=== PATIENT | female | born 1985 | race Caucasian/White ===

== ENCOUNTER 2017-07-02 21:14 | Emergency (ER) | payer BC, SELFPAY ==
[2017-07-02 21:24] VITALS: BP 156/100; PULSE 87; RESP 18; TEMP 36.8; O2SAT 100; BMI 30.5
--- NOTE | 2017-07-02 21:39 | DI.CT.S_ITS ---
PROCEDURE: CT ABDOMEN PELVIS W CON INDICATIONS: Right lower quadrant pain TECHNIQUE: After the administration of intravenous contrast, 5 mm thick sections acquired from the diaphragm to the symphysis. 5 mm coronal and sagittal reformats were acquired. For radiation dose reduction, the following was used: automated exposure control, adjustment of mA and/or kV according to patient size. COMPARISON: [facility], CT, ABDOMEN/PELVIS WITH CONTRAST, 01/25/2016, 22:09. [facility], CT, ABDOMEN/PELVIS WITH CONTRAST, 08/29/2016, 23:11. FINDINGS: Image quality: Excellent. ABDOMEN: Lung bases: Lung bases are clear. Heart size is normal. Solid organs: Mild hepatic steatosis otherwise liver is normal in size and enhancement. Gallbladder partially collapsed otherwise unremarkable.. Biliary system is non dilated. Pancreas enhances normally. Spleen is normal in size and enhancement. No adrenal nodules. Kidneys demonstrate normal size and enhancement, without hydronephrosis. Peritoneum and bowel: Bowel loops demonstrate normal wall thickness and caliber. No free fluid or air. Appendix not definitely visualized and reportedly surgically absent. The rectum is partially collapsed otherwise unremarkable. No evidence of acute diverticulitis. Nodes and vessels: No retroperitoneal or mesenteric adenopathy by size criteria. Aorta and inferior vena cava are normal in size. Miscellaneous: No ventral hernias. PELVIS: Genitourinary: Bladder wall thickness is normal. Postsurgical changes suggesting partial hysterectomy noted with no interval change since 01/25/16, and nearby mild pelvic free fluid. There is an irregular 2.2 cm right adnexal cystic lesion, which appears decreased in size since 08/29/16. Miscellaneous: No inguinal hernias or adenopathy. Bones: No suspicious bony lesions. No vertebral body compression fractures. IMPRESSION: Right adnexal cystic lesion, presumably involuting ovarian follicle or partially collapsed cyst given that this appears decreased in size since 08/29/16 and patient age. Recommend clinical correlation and if necessary continued surveillance with pelvic ultrasound could be performed to document complete resolution. Status post appendectomy. Elsewhere, no acute abnormality. Dictated by: Perry Kim M.D. on 07/03/2017 at 7:40 Approved by: Perry Kim M.D. on 07/03/2017 at 7:48
[2017-07-02] MEDS: SODIUM CHLORIDE 0.9% 1,000 ML 1000 ML IV (21:40)
[2017-07-02] MEDS: KETOROLAC 60 MG/2 ML VIAL 15 MG IV (21:40)
[2017-07-02 21:55] LABS: Add Manual Diff / Slide Review NO; Basophils Percent Auto 0.7 % (0-2); Eosinophils Percent Auto 1.9 % (2-4); Hematocrit 41.7 % (36-46); Hemoglobin 14.6 g/dL (12.0-16.0); Lymphocytes Percent Auto 22.5 % (25-40); Mean Corpuscular HGB Conc 34.9 % (30-36); Mean Corpuscular Hemoglobin 30.1 PG (26-34); Monocytes Percent Auto 7.9 % (3-14); Neutrophils Absolute Auto 10900 /uL (3000-5900); Platelet Count 281 X10^3/uL (150-400); Red Blood Cell Count 4.84 X10^6/uL (4.0-5.2); Red Cell Distribution Width 13.4 % (11.6-14.8); White Blood Cell Count 16.3 X10^3/uL (4.5-11.0)
[2017-07-02 22:08] LABS: Appearance Urine UA CLEAR; Bilirubin Urine UA NEGATIVE (NEGATIVE); Color Urine UA YELLOW; Glucose Urine UA NEGATIVE (Normal); Ketones Urine UA NEGATIVE (NEGATIVE); Leukocyte Esterase Urine UA NEGATIVE (NEGATIVE); Nitrite Urine UA NEGATIVE (NEGATIVE); Occult Blood Urine UA NEGATIVE (Negative); Protein Urine UA NEGATIVE (Negative); Urine Amphetamines Negative (Negative); Urine Barbiturates Negative (Negative); Urine Benzodiazepines Negative (Negative); Urine Cocaine Negative (Negative); Urine MDMA Negative (Negative); Urine Methadone Negative (Negative); Urine Methamphetamines Negative (Negative); Urine Morphine/Opi cutoff 2000 Negative (Negative); Urine Oxycodone Negative (Negative); Urine Phencyclidine Negative (Negative); Urine Tetrahydrocannabinol Negative (Negative); Urine Tricyclic Antidepressant Negative (Negative); Urobilinogen Urine UA 0.2 E.U./dL (0.2)
[2017-07-02 22:10] LABS: Bacteria Urine Many (>30); Culture Indicated Urine Specimen Cultured; Squamous Epithelial Cell Urine 0-1 /HPF; WBC Urine 0-1/HPF (0-5/HPF)
[2017-07-02 22:12] LABS: Alanine Aminotransferase 59 IU/L (9-52); Albumin 4.4 g/dL (3.5-5.0); Albumin Globulin Ratio 1.4 (1.0-2.8); Alkaline Phosphatase 78 U/L (38-126); Aspartate Aminotransferase 35 IU/L (14-36); BUN Creatinine Ratio 17.5 (6-22); Bilirubin Total 0.4 mg/dL (0.2-1.3); Calcium 9.8 mg/dL (8.4-10.2); Estimated Glomerular Filt Rate > 60.0 mL/min (>60); Globulin 3.1 g/dL (1.7-4.1); Glucose 93 mg/dL (70-100); HEMOLYSIS 37 (0-50); Lipase 82 U/L (23-300); Potassium 3.6 mmol/L (3.4-5.1); Sodium 142 mmol/L (137-145); Total Protein 7.5 g/dL (6.3-8.2)
[2017-07-02 23:11] VITALS: BP 142/90; PULSE 99; RESP 18; O2SAT 100
--- NOTE | 2017-07-03 00:16 | DI.US.S_ITS ---
PROCEDURE: US TRANSVAGINAL COMPARISON: None. INDICATIONS: rlq pain - torsion? FINDINGS: Uterus is surgically absent. Right adnexa measures 4.2 x 2.0 x 3.2 cm. Thickwalled, complex solid/cystic lesion in the right adnexa that measures 2.4 x 1.5 x 2.0 cm. Color Doppler evaluation demonstrates normal vascular flow in the right adnexa. Left adnexa is surgically absent. Small amount of fluid noted in the cul-de-sac of the pelvis which is within physiologic limits. Limited evaluation of the kidneys is within normal limits. IMPRESSION: 1. Status post hysterectomy and left oophorectomy. 2. No evidence of right ovarian torsion. Please note intermittent torsion cannot be excluded by ultrasound. 3. Thick walled solid/cystic lesion involving the right ovary which may represent a collapsing dominant follicle. Recommend followup imaging in 4-6 weeks to evaluate for complete resolution. Dictated by: Ciara Strauss MD, PhD on 07/03/2017 at 8:55 Approved by: Ciara Strauss MD, PhD on 07/03/2017 at 8:58
[2017-07-03] MEDS: KETOROLAC 60 MG/2 ML VIAL 15 MG IV (00:31)
[2017-07-03 01:25] LABS: Pregnancy Test Serum,Qual Negative (Negative)
[2017-07-03 01:26] VITALS: BP 122/78; PULSE 73; RESP 20; O2SAT 99
[2017-07-03] MEDS: CIPROFLOXACIN 500 MG TABLET PO (01:37)
--- NOTE | 2017-07-03 03:40 | ED.ABDPAIN ---
HPI - Abdominal Pain General Chief Complaint: Abdominal Pain Stated Complaint: ABDOMINAL PAIN History of Present Illness HPI narrative: HPI 31-year-old female with a history notable for ??3, hysterectomy, left oopherectomy, appendectomy s/p perforate appendicitis, lysis of adhesions ??3, and a right ovarian cyst presents complaining of one week of ongoing waxing and waning nonradiating moderate right lower quadrant pain that is been refractory to hot tub soaks. Denies dysuria, urinary frequency, vaginal discharge or discomfort, fevers, chills, change in PO intake, contains to pass flatus and stool at baseline, denies further symptoms. M/S/F/SocHx notable for: please see HPI; remainder reviewed with patient and in chart. ROS: Negative constitutional, eye, cardiovascular, pulmonary, GI, , MSK, skin, neurologic, psychiatric, endocrine unless noted in the HPI. Exam Gen: Pleasant, non-toxic appearing, resting in mild discomfort. HEENT: NC, AT, PEERL, EOMI. Resp: Clear to auscultation bilaterally, normal work of breathing, no accessory muscle usage. Card: Regular rate and rhythm with no murmurs, rubs, or gallops, extremities warm and well perfused. GI: Non-tender to palpation throughout all quadrants with the exception of mild right lower quadrant tenderness to palpation, no focal tenderness at McBurney's point, negative Comer's sign, non-distended, no rebound or guarding. : No right sided CVA tenderness to percussion, no left sided CVA tenderness to percussion. No suprapubic tenderness to palpation. MSK: No visible deformities, strength and tone WNL. Skin: Normal color with no visible lesions. Neuro: AO x 3, no facial asymmetry, vision and hearing WNL. Psych: Mood and affect appropriate. Labs / Imaging (pertinent): WBC 16.3, 1114.6, sodium 142, potassium 3.6, AST 35, ALT 59, total bilirubin 0.4, lipase 82, serum negative. UDS negative UA - negative nitrate, negative leukocyte esterase, 0-1 squamous epithelial cells, many bacteria. CT abdomen/pelvis partial hysterectomy. Slight intrapelvic fluid. Mildly thickened irregular 2.2 cm right ovarian dominant follicle or partially collapsed cyst. Transvaginal ultrasound: thick-walled collapsed appearing cystic structure in the right ovary measuring to send near maximal outer diameter, probably collapsed ovarian dominant follicle or cyst. Document a blood flow in the right ovary. Mild cul-de-sac fluid. MDM Previous chart, nursing note, and vitals reviewed. A: 31-year-old female with a history notable for ??3, hysterectomy, left oopherectomy, appendectomy s/p perforate appendicitis, lysis of adhesions ??3, and a right ovarian cyst presents complaining of one week of ongoing waxing and waning nonradiating moderate right lower quadrant pain that is been refractory to hot tub soaks. DDx: renal colic, UTI, pyelonephritis, AAA, biliary disease (colic/cholelithiasis/cholecystitis), large bowel disease (diverticulitis/appendicitis),ovarian torsion, hemorrhagic cyst, ectopic . Evaluation: UA consistent with UTI. Patient prescribed ciprofloxacin. Imaging without evidence of biliary disease, a history and exam a poor correlate for biliary colic. No evidence of large bowel disease, ovarian torsion or hemorrhagic cyst by imaging. Patient status post hysterectomy, negative . ED Course: pain controlled with Toradol. Disposition: discharged with RX for ciprofloxacin, instructed to use NSAIDs for pain control and follow up with PC. Impression: UTI. (please reference below for remainder of encounter information) Related Data Home Medications Medication Instructions Recorded Confirmed aripiprazole [Abilify] 10 mg PO DAILY 07/02/17 07/02/17 cetirizine [Zyrtec] 10 mg PO DAILY 07/02/17 07/02/17 cholecalciferol (vitamin D3) 1,000 unit PO DAILY 07/02/17 07/02/17 [Vitamin D3] Previous Rx's Medication Instructions Recorded ciprofloxacin HCl 250 mg PO BID 3 Days #6 tab 07/03/17 Allergies Allergy/AdvReac Type Severity Reaction Status Date / Time metoclopramide Allergy Intermediate MUSCLE Verified 07/02/17 21:27 [METOCLOPRAMIDE] SPASMS venlafaxine [VENLAFAXINE] Allergy Unknown ANXIETY Verified 07/02/17 21:27 PFSH Surgical History Hx of appendectomy (Acute) History of third molar tooth extraction Status post delivery (12/05/02) Status post delivery (06/10/04) Status post delivery (07/23/11) Status post delivery (06/20/14) Status post hysterectomy (06/20/14) Status post laparoscopy (08/13/15) Status post tonsillectomy and adenoidectomy Social History Smoking Status: Former smoker Exam Initial Vital Signs Initial Vital Signs: Vital Signs Temperature 98.3 F 07/02/17 21:24 Pulse Rate 87 07/02/17 21:24 Respiratory Rate 18 07/02/17 21:24 Blood Pressure 156/100 H 07/02/17 21:24 Pulse Oximetry 100 07/02/17 21:24 Course Orders Ordered: ED Orders 07/02/17 21:19 Rapid Drug Screen, Urine Stat Urinalysis and Microscopic Stat 07/02/17 21:39 CT abdomen pelvis w con Stat 07/02/17 21:40 Complete Blood Count AUTO DIFF Stat Comprehensive Metabolic Panel Stat Lipase Stat 07/03/17 00:16 US transvaginal Stat 07/03/17 01:15 Test Serum,Qual Stat Discontinued Medications Ciprofloxacin (Cipro) 500 mg PO NOW ONE Stop: 07/03/17 01:18 Last Admin: 07/03/17 01:37 Dose: 500 mg Sodium Chloride (Normal Saline 0.9%) 1,000 mls @ 1,000 mls/hr IV BOLUS ONE Stop: 07/02/17 22:41 Last Infusion: 07/02/17 23:01 Dose: 1,000 mls/hr Admin: 07/02/17 21:40 Dose: 1,000 mls/hr Ketorolac Tromethamine (Toradol) 15 mg IV NOW ONE Stop: 07/02/17 21:40 Last Admin: 07/02/17 21:40 Dose: 15 mg Ketorolac Tromethamine (Toradol) 15 mg IV NOW ONE Stop: 07/03/17 00:27 Last Admin: 07/03/17 00:31 Dose: 15 mg Morphine Sulfate (Morphine) 4 mg IV NOW ONE Stop: 07/03/17 00:27 Last Admin: 07/03/17 00:30 Dose: Not Given Vital Signs - 8 hr 07/02/17 21:24 07/02/17 23:11 07/03/17 01:26 Temperature 98.3 F Pulse Rate 87 99 H 73 Respiratory Rate 18 18 20 Blood Pressure 156/100 H Blood Pressure [Right Arm] 142/90 H 122/78 H Pulse Oximetry 100 100 99 MDM - Abdominal Pain Lab Data Result diagrams: 07/02/17 21:40 07/02/17 21:40 Lab Results 07/02/17 07/02/17 07/02/17 Range/Units 21:19 21:19 21:40 WBC 16.3 H (4.5-11.0) X10^3/uL RBC 4.84 (4.0-5.2) X10^6/uL Hgb 14.6 (12.0-16.0) g/dL Hct 41.7 (36-46) % MCV 86.0 (80-100) fL MCH 30.1 (26-34) PG MCHC 34.9 (30-36) % RDW 13.4 (11.6-14.8) % Plt Count 281 (150-400) X10^3/uL Neut % (Auto) 67.0 (50-75) % Lymph % (Auto) 22.5 L (25-40) % [place] % (Auto) 7.9 (3-14) % Eos % (Auto) 1.9 L (2-4) % Baso % (Auto) 0.7 (0-2) % Neut # (Auto) 83798 H (3076-6131) /uL Sodium (137-145) mmol/L Potassium (3.4-5.1) mmol/L Chloride (98-107) mmol/L Carbon Dioxide (22-32) mmol/L BUN (7-17) mg/dL Creatinine (0.52-1.04) mg/dL Estimated GFR (>60) mL/min BUN/Creatinine Ratio (6-22) Glucose (70-100) mg/dL Calcium (8.4-10.2) mg/dL Total Bilirubin (0.2-1.3) mg/dL AST (14-36) IU/L ALT (9-52) IU/L Alkaline Phosphatase (38-126) U/L Total Protein (6.3-8.2) g/dL Albumin (3.5-5.0) g/dL Globulin (1.7-4.1) g/dL Albumin/Globulin Ratio (1.0-2.8) Lipase (23-300) U/L Serum , Qual (Negative) Urine Color Yellow Urine Appearance Clear Urine pH 6.0 (4.5-8.0) Ur Specific [place] 1.010 (1.000-1.035) Urine Protein Negative (Negative) Urine Glucose (UA) Negative (Normal) g/dL Urine Ketones Negative (NEGATIVE) Urine Occult Blood Negative (Negative) Urine Nitrate Negative (NEGATIVE) Urine Bilirubin Negative (NEGATIVE) Urine Urobilinogen 0.2 (0.2) E.U./dL Ur Leukocyte Esterase Negative (NEGATIVE) Urine WBC 0-1/hpf (0-5/HPF) Ur Squamous Epith Cells 0-1 /hpf Urine Bacteria Many (>30) H (None) Ur Culture Indicated? Specimen cultured Micro UA Comment Not Reportable Urine Opiates Screen Negative (Negative) Ur Oxycodone Screen Negative (Negative) Urine Methadone Screen Negative (Negative) Ur Barbiturates Screen Negative (Negative) U Tricyclic Antidepress Negative (Negative) Ur Phencyclidine Scrn Negative (Negative) Ur Amphetamines Screen Negative (Negative) U Methamphetamines Scrn Negative (Negative) Ur MDMA Scrn (Ecstasy) Negative (Negative) U Benzodiazepines Scrn Negative (Negative) Urine Cocaine Screen Negative (Negative) U Marijuana (THC) Screen Negative (Negative) 07/02/17 07/03/17 Range/Units 21:40 01:15 WBC (4.5-11.0) X10^3/uL RBC (4.0-5.2) X10^6/uL Hgb (12.0-16.0) g/dL Hct (36-46) % MCV (80-100) fL MCH (26-34) PG MCHC (30-36) % RDW (11.6-14.8) % Plt Count (150-400) X10^3/uL Neut % (Auto) (50-75) % Lymph % (Auto) (25-40) % [place] % (Auto) (3-14) % Eos % (Auto) (2-4) % Baso % (Auto) (0-2) % Neut # (Auto) (6595-1233) /uL Sodium 142 (137-145) mmol/L Potassium 3.6 (3.4-5.1) mmol/L Chloride 102.0 (98-107) mmol/L Carbon Dioxide 28.0 (22-32) mmol/L BUN 14.0 (7-17) mg/dL Creatinine 0.80 (0.52-1.04) mg/dL Estimated GFR > 60.0 (>60) mL/min BUN/Creatinine Ratio 17.5 (6-22) Glucose 93 (70-100) mg/dL Calcium 9.8 (8.4-10.2) mg/dL Total Bilirubin 0.4 (0.2-1.3) mg/dL AST 35 (14-36) IU/L ALT 59 H (9-52) IU/L Alkaline Phosphatase 78 (38-126) U/L Total Protein 7.5 (6.3-8.2) g/dL Albumin 4.4 (3.5-5.0) g/dL Globulin 3.1 (1.7-4.1) g/dL Albumin/Globulin Ratio 1.4 (1.0-2.8) Lipase 82 (23-300) U/L Serum , Qual Negative (Negative) Urine Color Urine Appearance Urine pH (4.5-8.0) Ur Specific [place]ell (1.000-1.035) Urine Protein (Negative) Urine Glucose (UA) (Normal) g/dL Urine Ketones (NEGATIVE) Urine Occult Blood (Negative) Urine Nitrate (NEGATIVE) Urine Bilirubin (NEGATIVE) Urine Urobilinogen (0.2) E.U./dL Ur Leukocyte Esterase (NEGATIVE) Urine WBC (0-5/HPF) Ur Squamous Epith Cells Urine Bacteria (None) Ur Culture Indicated? Micro UA Comment Urine Opiates Screen (Negative) Ur Oxycodone Screen (Negative) Urine Methadone Screen (Negative) Ur Barbiturates Screen (Negative) U Tricyclic Antidepress (Negative) Ur Phencyclidine Scrn (Negative) Ur Amphetamines Screen (Negative) U Methamphetamines Scrn (Negative) Ur MDMA Scrn (Ecstasy) (Negative) U Benzodiazepines Scrn (Negative) Urine Cocaine Screen (Negative) U Marijuana (THC) Screen (Negative) Discharge Plan Departure Patient Disposition: Home, Self-Care Clinical Impression: UTI (urinary tract infection) Discharge Date/Time: 07/03/17 01:53 Interventions: ED Discharge Assessment Last Done: 07/03/17 01:51 Prescriptions: New ciprofloxacin HCl 250 mg tablet 250 mg PO BID 3 Days Qty: 6 RF: 0 No Action cholecalciferol (vitamin D3) [Vitamin D3] 1,000 unit Capsule 1,000 unit PO DAILY RF: 0 aripiprazole [Abilify] 10 mg Tablet 10 mg PO DAILY RF: 0 cetirizine [Zyrtec] 10 mg Capsule 10 mg PO DAILY RF: 0
== END 2017-07-03 01:53 | disposition home or self-care (01) ==
PROVIDERS: Emergency Provider Emergency Medicine
DX: N39.0 Urinary tract infection, site not specified (principal)
CPT/HCPCS: 74177; 76830; 80053; 80305; 81001; 81003; 83690; 84703; 85025; 87086; 87186; 96361; 96374; 96375; 96376; 99283; 99284; J1885; Q9967

== ENCOUNTER 2017-12-30 13:35 | Emergency (ER) | payer BC, SELFPAY ==
[2017-12-30 13:44] VITALS: BP 149/97; PULSE 89; RESP 14; TEMP 36.9; O2SAT 100
--- NOTE | 2017-12-30 13:57 | ED.NEUROSD ---
HPI - Neuro Symptoms/Deficit <MORALES Tariq - Last Filed: 12/30/17 17:20> General Chief Complaint: Neuro Symptoms/Deficit Stated Complaint: confusion Time Seen by Provider: 12/30/17 13:57 Source: patient and family (spouse) Mode of arrival: ambulatory Limitations: no limitations History of Present Illness HPI Narrative: sudden onset about 2 hrs ago, of feeling dizzy, feeling faint, trouble focusing, reading, talking and getting her words out Onset (ago): hour(s) (2) Timing confirmed by: spouse Location: speech History of same: No Relieving factors: none Exacerbating factors: none Context: sudden onset On Anticoagulants: No Associated symptoms: confusion and vertigo Treatments Prior to Arrival: none Related Data Home Medications Medication Instructions Recorded Confirmed aripiprazole [Abilify] 10 mg PO DAILY 07/02/17 07/02/17 cetirizine [Zyrtec] 10 mg PO DAILY 07/02/17 07/02/17 cholecalciferol (vitamin D3) 1,000 unit PO DAILY 07/02/17 07/02/17 [Vitamin D3] Allergies Allergy/AdvReac Type Severity Reaction Status Date / Time metoclopramide Allergy Intermediate MUSCLE Verified 07/02/17 21:27 [METOCLOPRAMIDE] SPASMS venlafaxine [VENLAFAXINE] Allergy Unknown ANXIETY Verified 07/02/17 21:27 Review of Systems <MORALES Tariq - Last Filed: 12/30/17 17:20> Constitutional Reports as per HPI, Denies fever(s) and Denies headache(s) Eyes Denies blurry vision, Denies change in vision and Denies loss of vision ENT Ears, Nose, Mouth, and Throat: Reports vertigo, Reports dizziness, Denies headache(s) and Denies neck pain Cardiovascular Denies chest pain, Denies syncope and Denies dyspnea Respiratory Denies dyspnea Gastrointestinal Gastrointestinal: Denies abdominal pain, Denies diarrhea and Denies vomiting Genitourinary Denies dysuria Musculoskeletal Denies abnormal gait, Denies back pain, Denies limited range of motion, Denies neck pain and Denies numbness Neurologic Reports as per HPI, Reports abnormal speech, Denies abnormal gait, Reports vertigo, Reports dizziness, Denies syncope, Denies headache(s), Denies focal weakness, Denies loss of vision, Reports memory loss, Denies numbness, Denies other visual disturbances, Denies sensory deficit and Denies paresthesias Psychiatric Reports memory loss Exam <MORALES Tariq - Last Filed: 12/30/17 17:20> Initial Vital Signs Initial Vital Signs: Vital Signs Temperature 98.4 F 12/30/17 13:44 Pulse Rate 89 12/30/17 13:44 Respiratory Rate 14 12/30/17 13:44 Blood Pressure 149/97 H 12/30/17 13:44 Pulse Oximetry 100 12/30/17 13:44 Const General: cooperative, healthy appearing, comfortable, well developed and well groomed Nutritional Appearance: average body habitus Orientation: alert, awake and oriented x3 HENMT Head: normal to inspection and normocephalic Ears: hearing grossly normal bilaterally, external ears normal, TM's normal bilaterally and mastoids normal Nose: external nose normal and nares normal Face and sinus: normal facial exam, sinuses nontender and face symmetric Mouth: oral mucosae normal, lip normal, tongue normal, oropharynx normal and moist mucous membranes Teeth and gingiva: dentition normal and gingiva normal Throat: posterior oropharynx normal, tonsils normal and uvula midline Eyes General: appearance normal, both eyes and all related structures Visual Moore: normal visual moore by confrontation Eyelids: eyelids normal Conjunctivae: conjunctivae normal Sclera: sclerae normal Pupils: PERRL EOM: EOM intact bilaterally Neck Neck: normal visual inspection, full ROM, no meningeal signs, trachea midline, supple and No lymphadenopathy Resp Effort & Inspection: normal respiratory effort and able to speak in complete sentences Back/Spine/Pelvis Cervical Spine: cervical ROM normal Thoracic/Lumbar Spine: thoraco-lumbar ROM normal Skin General: no rashes or lesions noted, elasticity normal, turgor normal and dry skin Neuro General: alert, awake, oriented x3 and meningeal signs present Cranial Nerves: PERRL Cognition: normal cognition Speech: speech normal Gait: normal gait Motor: muscle tone normal throughout Sensory Exam: no sensory deficits noted Extrem General: normal to inspection and full ROM Psych Appearance: grossly normal and well kempt Mental Status: mental status grossly normal Speech and Movement: speech and movement normal Mood: congruent mood Affect: normal affect Attitude: cooperative Thought Process: normal Thought Content: normal Judgment: judgment good <Wendy Arthur DO - Last Filed: 12/31/17 07:22> Initial Vital Signs Initial Vital Signs: Vital Signs Temperature 98.4 F 12/30/17 13:44 Pulse Rate 89 12/30/17 13:44 Respiratory Rate 14 12/30/17 13:44 Blood Pressure 149/97 H 12/30/17 13:44 Pulse Oximetry 100 12/30/17 13:44 Scores <MORALES Tariq - Last Filed: 12/30/17 17:20> NIH Stroke Scale Level of Conciousness: Alert, keenly responsive Ask month/age: Answers both questions correctly. Open/close eyes, close hand: Performs both tasks correctly Best gaze horizontal: Normal Visual moore: No visual loss Facial palsy: Normal symetrical movement Left arm drift: No drift for full 10 sec Right arm drift: No drift for full 10 sec Left leg drift: No drift for full 10 sec Right leg drift: No drift for full 10 sec Limb ataxia: Absent Sensory on face/arms/legs: Normal, no sensory loss Best language: No aphasia, normal Dysarthria: Normal Extinction or inattention: No abnormality Total NIH Stroke scale score: 0 Course <MORALES Tariq - Last Filed: 12/30/17 17:20> Course Narrative: 1600 asked health information coder Zeferino to call the lab in regards to delay of labs, cmp and thyroid 1630 results and dc plan discussed. Orders Ordered: ED Orders 12/30/17 14:07 CT head/brain wo con Stat Complete Blood Count AUTO DIFF Stat Comprehensive Metabolic Panel Stat 12/30/17 14:21 Urine Drug Screen, Rapid Stat Urine Microscopic Stat 12/30/17 14:24 Thyroid Stimulating Hormone Stat Vital Signs - 8 hr 12/30/17 13:44 12/30/17 16:52 Temperature 98.4 F Pulse Rate 89 98 H Respiratory Rate 14 20 Blood Pressure 149/97 H 131/87 Pulse Oximetry 100 98 <Wendy Arthur DO - Last Filed: 12/31/17 07:22> Orders Ordered: ED Orders 12/30/17 14:07 CT head/brain wo con Stat Complete Blood Count AUTO DIFF Stat Comprehensive Metabolic Panel Stat 12/30/17 14:21 Urine Drug Screen, Rapid Stat Urine Microscopic Stat 12/30/17 14:24 Thyroid Stimulating Hormone Stat Vital Signs - 8 hr 12/30/17 13:44 12/30/17 16:52 Temperature 98.4 F Pulse Rate 89 98 H Respiratory Rate 14 20 Blood Pressure 149/97 H 131/87 Pulse Oximetry 100 98 MDM - Neuro Symptoms/Deficit < KWAME EliasP - Last Filed: 12/30/17 17:20> Differential Diagnosis Likely delirium, subarachnoid hemorrhage, cerebrovascular accident, transient cerebral ischemia and other (substance abuse, psychosomatic, anxiety, electrolyte issue) Lab Data Result diagrams: 12/30/17 14:07 12/30/17 14:07 Lab Results 12/30/17 12/30/17 12/30/17 Range/Units 14:07 14:07 14:21 WBC 11.6 H (4.5-11.0) X10^3/uL RBC 4.93 (4.0-5.2) X10^6/uL Hgb 14.4 (12.0-16.0) g/dL Hct 42.6 (36-46) % MCV 86.4 (80-100) fL MCH 29.3 (26-34) PG MCHC 33.9 (30-36) % RDW 13.0 (11.6-14.8) % Plt Count 299 (150-400) X10^3/uL Neut % (Auto) 71.2 (50-75) % Lymph % (Auto) 18.5 L (25-40) % [place] % (Auto) 7.1 (3-14) % Eos % (Auto) 2.4 (2-4) % Baso % (Auto) 0.8 (0-2) % Neut # (Auto) 8300 H (6194-2124) /uL Sodium 141 (137-145) mmol/L Potassium 4.1 (3.4-5.1) mmol/L Chloride 106 (98-107) mmol/L Carbon Dioxide 23 (22-32) mmol/L BUN 8 (7-17) mg/dL Creatinine 0.70 (0.52-1.04) mg/dL Estimated GFR > 60.0 (>60) mL/min BUN/Creatinine Ratio 11.4 (6-22) Glucose 88 (70-100) mg/dL Calcium 9.1 (8.4-10.2) mg/dL Total Bilirubin 0.3 (0.2-1.3) mg/dL AST 21 (14-36) IU/L ALT 45 (9-52) IU/L Alkaline Phosphatase 87 (38-126) U/L Total Protein 7.1 (6.3-8.2) g/dL Albumin 4.3 (3.5-5.0) g/dL Globulin 2.8 (1.7-4.1) g/dL Albumin/Globulin Ratio 1.5 (1.0-2.8) TSH (0.47-4.68) uIU/mL Urine RBC (0-5/HPF) Urine WBC (0-5/HPF) Ur Squamous Epith Cells Urine Bacteria (None) Ur Culture Indicated? Micro UA Comment Urine Opiates Screen Negative (Negative) Ur Oxycodone Screen Negative (Negative) Urine Methadone Screen Negative (Negative) Ur Barbiturates Screen Negative (Negative) U Tricyclic Antidepress Negative (Negative) Ur Phencyclidine Scrn Negative (Negative) Ur Amphetamines Screen Negative (Negative) U Methamphetamines Scrn Negative (Negative) Ur MDMA Scrn (Ecstasy) Negative (Negative) U Benzodiazepines Scrn Negative (Negative) Urine Cocaine Screen Negative (Negative) U Marijuana (THC) Screen Negative (Negative) 12/30/17 12/30/17 Range/Units 14:21 14:24 WBC (4.5-11.0) X10^3/uL RBC (4.0-5.2) X10^6/uL Hgb (12.0-16.0) g/dL Hct (36-46) % MCV (80-100) fL MCH (26-34) PG MCHC (30-36) % RDW (11.6-14.8) % Plt Count (150-400) X10^3/uL Neut % (Auto) (50-75) % Lymph % (Auto) (25-40) % [place] % (Auto) (3-14) % Eos % (Auto) (2-4) % Baso % (Auto) (0-2) % Neut # (Auto) (0954-4073) /uL Sodium (137-145) mmol/L Potassium (3.4-5.1) mmol/L Chloride (98-107) mmol/L Carbon Dioxide (22-32) mmol/L BUN (7-17) mg/dL Creatinine (0.52-1.04) mg/dL Estimated GFR (>60) mL/min BUN/Creatinine Ratio (6-22) Glucose (70-100) mg/dL Calcium (8.4-10.2) mg/dL Total Bilirubin (0.2-1.3) mg/dL AST (14-36) IU/L ALT (9-52) IU/L Alkaline Phosphatase (38-126) U/L Total Protein (6.3-8.2) g/dL Albumin (3.5-5.0) g/dL Globulin (1.7-4.1) g/dL Albumin/Globulin Ratio (1.0-2.8) TSH 1.62 (0.47-4.68) uIU/mL Urine RBC None seen (0-5/HPF) Urine WBC 0-1/hpf (0-5/HPF) Ur Squamous Epith Cells 0-1 /hpf Urine Bacteria None seen (None) Ur Culture Indicated? Cult not indicated Micro UA Comment Not Reportable Urine Opiates Screen (Negative) Ur Oxycodone Screen (Negative) Urine Methadone Screen (Negative) Ur Barbiturates Screen (Negative) U Tricyclic Antidepress (Negative) Ur Phencyclidine Scrn (Negative) Ur Amphetamines Screen (Negative) U Methamphetamines Scrn (Negative) Ur MDMA Scrn (Ecstasy) (Negative) U Benzodiazepines Scrn (Negative) Urine Cocaine Screen (Negative) U Marijuana (THC) Screen (Negative) Urine Dip Bedside Urine Glucose Negative Bedside Urine Bilirubin - Negative Bedside Urine Ketone - Negative Urine Specific [place] 1.015 Bedside Urine Occult Blood - Negative Bedside Urine pH 6.0 Bedside Urine Protein - Negative Bedside Urine Urobilinogen - Negative Bedside Urine Nitrite - Negative Bedside Urine Leukocytes - Negative Esterase Imaging Data CT scan - head: Radiologist's impression: [address] [address] [address] Scan Report Signed Patient: Tammy Goode LMR#: [id number] : 1985Acct:[id number] Age/Sex: 32 / FDate of Service: 12/30/17 Loc: ED Accession Number: [id number] Procedure: CT head/brain wo con Ordering Provider: Heather Elias PROCEDURE: CT HEAD/BRAIN WO CON INDICATIONS: pt states she is having trouble reading, talking and process TECHNIQUE: Noncontrast 4.5 mm thick angled axial sections acquired from the foramen magnum to the vertex, with coronal and sagittal reformats. For radiation dose reduction, the following was used: automated exposure control, adjustment of mA and/or kV according to patient size. COMPARISON: [facility], CT, BRAIN W/O CONTRAST, 09/05/2013, 23:41. FINDINGS: Image quality: Diagnostic. CSF spaces: Basal cisterns are patent. No extra-axial fluid collections. Ventricles are normal in size and shape. Brain: No midline shift. No intracranial masses or hemorrhage. Judge-white matter interface is normal. Skull and face: Calvarium and visualized facial bones are intact, without suspicious lesions. Sinuses: Visualized sinuses and mastoids are clear. IMPRESSION: Unremarkable head CT. No acute intracranial hemorrhage. Dictated by: Dmitry Rivas M.D. on 12/30/2017 at 13:58 Approved by: Dmitry Rivas M.D. on 12/30/2017 at 13:59 <Wendy Arthur, - Last Filed: 12/31/17 07:22> Lab Data Lab Results 12/30/17 12/30/17 12/30/17 Range/Units 14:07 14:07 14:21 WBC 11.6 H (4.5-11.0) X10^3/uL RBC 4.93 (4.0-5.2) X10^6/uL Hgb 14.4 (12.0-16.0) g/dL Hct 42.6 (36-46) % MCV 86.4 (80-100) fL MCH 29.3 (26-34) PG MCHC 33.9 (30-36) % RDW 13.0 (11.6-14.8) % Plt Count 299 (150-400) X10^3/uL Neut % (Auto) 71.2 (50-75) % Lymph % (Auto) 18.5 L (25-40) % [place] % (Auto) 7.1 (3-14) % Eos % (Auto) 2.4 (2-4) % Baso % (Auto) 0.8 (0-2) % Neut # (Auto) 8300 H (1956-0013) /uL Sodium 141 (137-145) mmol/L Potassium 4.1 (3.4-5.1) mmol/L Chloride 106 (98-107) mmol/L Carbon Dioxide 23 (22-32) mmol/L BUN 8 (7-17) mg/dL Creatinine 0.70 (0.52-1.04) mg/dL Estimated GFR > 60.0 (>60) mL/min BUN/Creatinine Ratio 11.4 (6-22) Glucose 88 (70-100) mg/dL Calcium 9.1 (8.4-10.2) mg/dL Total Bilirubin 0.3 (0.2-1.3) mg/dL AST 21 (14-36) IU/L ALT 45 (9-52) IU/L Alkaline Phosphatase 87 (38-126) U/L Total Protein 7.1 (6.3-8.2) g/dL Albumin 4.3 (3.5-5.0) g/dL Globulin 2.8 (1.7-4.1) g/dL Albumin/Globulin Ratio 1.5 (1.0-2.8) TSH (0.47-4.68) uIU/mL Urine RBC (0-5/HPF) Urine WBC (0-5/HPF) Ur Squamous Epith Cells Urine Bacteria (None) Ur Culture Indicated? Micro UA Comment Urine Opiates Screen Negative (Negative) Ur Oxycodone Screen Negative (Negative) Urine Methadone Screen Negative (Negative) Ur Barbiturates Screen Negative (Negative) U Tricyclic Antidepress Negative (Negative) Ur Phencyclidine Scrn Negative (Negative) Ur Amphetamines Screen Negative (Negative) U Methamphetamines Scrn Negative (Negative) Ur MDMA Scrn (Ecstasy) Negative (Negative) U Benzodiazepines Scrn Negative (Negative) Urine Cocaine Screen Negative (Negative) U Marijuana (THC) Screen Negative (Negative) 12/30/17 12/30/17 Range/Units 14:21 14:24 WBC (4.5-11.0) X10^3/uL RBC (4.0-5.2) X10^6/uL Hgb (12.0-16.0) g/dL Hct (36-46) % MCV (80-100) fL MCH (26-34) PG MCHC (30-36) % RDW (11.6-14.8) % Plt Count (150-400) X10^3/uL Neut % (Auto) (50-75) % Lymph % (Auto) (25-40) % [place] % (Auto) (3-14) % Eos % (Auto) (2-4) % Baso % (Auto) (0-2) % Neut # (Auto) (3489-3642) /uL Sodium (137-145) mmol/L Potassium (3.4-5.1) mmol/L Chloride (98-107) mmol/L Carbon Dioxide (22-32) mmol/L BUN (7-17) mg/dL Creatinine (0.52-1.04) mg/dL Estimated GFR (>60) mL/min BUN/Creatinine Ratio (6-22) Glucose (70-100) mg/dL Calcium (8.4-10.2) mg/dL Total Bilirubin (0.2-1.3) mg/dL AST (14-36) IU/L ALT (9-52) IU/L Alkaline Phosphatase (38-126) U/L Total Protein (6.3-8.2) g/dL Albumin (3.5-5.0) g/dL Globulin (1.7-4.1) g/dL Albumin/Globulin Ratio (1.0-2.8) TSH 1.62 (0.47-4.68) uIU/mL Urine RBC None seen (0-5/HPF) Urine WBC 0-1/hpf (0-5/HPF) Ur Squamous Epith Cells 0-1 /hpf Urine Bacteria None seen (None) Ur Culture Indicated? Cult not indicated Micro UA Comment Not Reportable Urine Opiates Screen (Negative) Ur Oxycodone Screen (Negative) Urine Methadone Screen (Negative) Ur Barbiturates Screen (Negative) U Tricyclic Antidepress (Negative) Ur Phencyclidine Scrn (Negative) Ur Amphetamines Screen (Negative) U Methamphetamines Scrn (Negative) Ur MDMA Scrn (Ecstasy) (Negative) U Benzodiazepines Scrn (Negative) Urine Cocaine Screen (Negative) U Marijuana (THC) Screen (Negative) Urine Dip Bedside Urine Glucose Negative Bedside Urine Bilirubin - Negative Bedside Urine Ketone - Negative Urine Specific [place] 1.015 Bedside Urine Occult Blood - Negative Bedside Urine pH 6.0 Bedside Urine Protein - Negative Bedside Urine Urobilinogen - Negative Bedside Urine Nitrite - Negative Bedside Urine Leukocytes - Negative Esterase Discharge Plan Departure Patient Disposition: Home Clinical Impression: No problem, feared complaint unfounded, Anxiety Discharge Date/Time: 12/30/17 16:53 Interventions: ED Discharge Assessment Last Done: 12/30/17 16:52 Instructions: DI for Anxiety -- Adult Prescriptions: No Action cholecalciferol (vitamin D3) [Vitamin D3] 1,000 unit Capsule 1,000 unit PO DAILY RF: 0 aripiprazole [Abilify] 10 mg Tablet 10 mg PO DAILY RF: 0 cetirizine [Zyrtec] 10 mg Capsule 10 mg PO DAILY RF: 0 Referrals: Clone,AFM APC, PA-C, BAIL BOND AGENT [[employer]] - Meg Koch MD [Non-Staff] - Taye Bates DO [Non-Staff] - Jalen Cobos MD [Non-Staff] - Ru Mendoza MD [Non-Staff] - Gini Felix MD [Non-Staff] - (follow up as needed for continued symptoms or issues) <Wendy Arthur DO - Last Filed: 12/31/17 07:22> Cosign ED Attending Cosanjaliature Attestation: I was immediately available in the department for consultation. Documentation has been reviewed. I agree with assessment and plan.
--- NOTE | 2017-12-30 14:07 | DI.CT.S_ITS ---
PROCEDURE: CT HEAD/BRAIN WO CON INDICATIONS: pt states she is having trouble reading, talking and process TECHNIQUE: Noncontrast 4.5 mm thick angled axial sections acquired from the foramen magnum to the vertex, with coronal and sagittal reformats. For radiation dose reduction, the following was used: automated exposure control, adjustment of mA and/or kV according to patient size. COMPARISON: [facility], CT, BRAIN W/O CONTRAST, 09/05/2013, 23:41. FINDINGS: Image quality: Diagnostic. CSF spaces: Basal cisterns are patent. No extra-axial fluid collections. Ventricles are normal in size and shape. Brain: No midline shift. No intracranial masses or hemorrhage. Judge-white matter interface is normal. Skull and face: Calvarium and visualized facial bones are intact, without suspicious lesions. Sinuses: Visualized sinuses and mastoids are clear. IMPRESSION: Unremarkable head CT. No acute intracranial hemorrhage. Dictated by: Dmitry Rivas M.D. on 12/30/2017 at 13:58 Approved by: Dmitry Rivas M.D. on 12/30/2017 at 13:59
--- NOTE | 2017-12-30 14:16 | ED_ITS ---
HPI - Neuro Symptoms/Deficit <MORALES Tariq - Last Filed: 12/30/17 17:20> General Chief Complaint: Neuro Symptoms/Deficit Stated Complaint: confusion Time Seen by Provider: 12/30/17 13:57 Source: patient and family (spouse) Mode of arrival: ambulatory Limitations: no limitations History of Present Illness HPI Narrative: sudden onset about 2 hrs ago, of feeling dizzy, feeling faint, trouble focusing, reading, talking and getting her words out Onset (ago): hour(s) (2) Timing confirmed by: spouse Location: speech History of same: No Relieving factors: none Exacerbating factors: none Context: sudden onset On Anticoagulants: No Associated symptoms: confusion and vertigo Treatments Prior to Arrival: none Related Data Home Medications Medication Instructions Recorded Confirmed aripiprazole [Abilify] 10 mg PO DAILY 07/02/17 07/02/17 cetirizine [Zyrtec] 10 mg PO DAILY 07/02/17 07/02/17 cholecalciferol (vitamin D3) 1,000 unit PO DAILY 07/02/17 07/02/17 [Vitamin D3] Allergies Allergy/AdvReac Type Severity Reaction Status Date / Time metoclopramide Allergy Intermediate MUSCLE Verified 07/02/17 21:27 [METOCLOPRAMIDE] SPASMS venlafaxine [VENLAFAXINE] Allergy Unknown ANXIETY Verified 07/02/17 21:27 Review of Systems <MORALES Tariq - Last Filed: 12/30/17 17:20> Constitutional Reports as per HPI, Denies fever(s) and Denies headache(s) Eyes Denies blurry vision, Denies change in vision and Denies loss of vision ENT Ears, Nose, Mouth, and Throat: Reports vertigo, Reports dizziness, Denies headache(s) and Denies neck pain Cardiovascular Denies chest pain, Denies syncope and Denies dyspnea Respiratory Denies dyspnea Gastrointestinal Gastrointestinal: Denies abdominal pain, Denies diarrhea and Denies vomiting Genitourinary Denies dysuria Musculoskeletal Denies abnormal gait, Denies back pain, Denies limited range of motion, Denies neck pain and Denies numbness Neurologic Reports as per HPI, Reports abnormal speech, Denies abnormal gait, Reports vertigo, Reports dizziness, Denies syncope, Denies headache(s), Denies focal weakness, Denies loss of vision, Reports memory loss, Denies numbness, Denies other visual disturbances, Denies sensory deficit and Denies paresthesias Psychiatric Reports memory loss Exam <MORALES Tariq - Last Filed: 12/30/17 17:20> Initial Vital Signs Initial Vital Signs: Vital Signs Temperature 98.4 F 12/30/17 13:44 Pulse Rate 89 12/30/17 13:44 Respiratory Rate 14 12/30/17 13:44 Blood Pressure 149/97 H 12/30/17 13:44 Pulse Oximetry 100 12/30/17 13:44 Const General: cooperative, healthy appearing, comfortable, well developed and well groomed Nutritional Appearance: average body habitus Orientation: alert, awake and oriented x3 HENMT Head: normal to inspection and normocephalic Ears: hearing grossly normal bilaterally, external ears normal, TM's normal bilaterally and mastoids normal Nose: external nose normal and nares normal Face and sinus: normal facial exam, sinuses nontender and face symmetric Mouth: oral mucosae normal, lip normal, tongue normal, oropharynx normal and moist mucous membranes Teeth and gingiva: dentition normal and gingiva normal Throat: posterior oropharynx normal, tonsils normal and uvula midline Eyes General: appearance normal, both eyes and all related structures Visual Moore: normal visual moore by confrontation Eyelids: eyelids normal Conjunctivae: conjunctivae normal Sclera: sclerae normal Pupils: PERRL EOM: EOM intact bilaterally Neck Neck: normal visual inspection, full ROM, no meningeal signs, trachea midline, supple and No lymphadenopathy Resp Effort & Inspection: normal respiratory effort and able to speak in complete sentences Back/Spine/Pelvis Cervical Spine: cervical ROM normal Thoracic/Lumbar Spine: thoraco-lumbar ROM normal Skin General: no rashes or lesions noted, elasticity normal, turgor normal and dry skin Neuro General: alert, awake, oriented x3 and meningeal signs present Cranial Nerves: PERRL Cognition: normal cognition Speech: speech normal Gait: normal gait Motor: muscle tone normal throughout Sensory Exam: no sensory deficits noted Extrem General: normal to inspection and full ROM Psych Appearance: grossly normal and well kempt Mental Status: mental status grossly normal Speech and Movement: speech and movement normal Mood: congruent mood Affect: normal affect Attitude: cooperative Thought Process: normal Thought Content: normal Judgment: judgment good <Wendy Arthur DO - Last Filed: 12/31/17 07:22> Initial Vital Signs Initial Vital Signs: Vital Signs Temperature 98.4 F 12/30/17 13:44 Pulse Rate 89 12/30/17 13:44 Respiratory Rate 14 12/30/17 13:44 Blood Pressure 149/97 H 12/30/17 13:44 Pulse Oximetry 100 12/30/17 13:44 Scores <MORALES Tariq - Last Filed: 12/30/17 17:20> NIH Stroke Scale Level of Conciousness: Alert, keenly responsive Ask month/age: Answers both questions correctly. Open/close eyes, close hand: Performs both tasks correctly Best gaze horizontal: Normal Visual moore: No visual loss Facial palsy: Normal symetrical movement Left arm drift: No drift for full 10 sec Right arm drift: No drift for full 10 sec Left leg drift: No drift for full 10 sec Right leg drift: No drift for full 10 sec Limb ataxia: Absent Sensory on face/arms/legs: Normal, no sensory loss Best language: No aphasia, normal Dysarthria: Normal Extinction or inattention: No abnormality Total NIH Stroke scale score: 0 Course <MORALES Tariq - Last Filed: 12/30/17 17:20> Course Narrative: 1600 asked instructor robotics Zeferino to call the lab in regards to delay of labs, cmp and thyroid 1630 results and dc plan discussed. Orders Ordered: ED Orders 12/30/17 14:07 CT head/brain wo con Stat Complete Blood Count AUTO DIFF Stat Comprehensive Metabolic Panel Stat 12/30/17 14:21 Urine Drug Screen, Rapid Stat Urine Microscopic Stat 12/30/17 14:24 Thyroid Stimulating Hormone Stat Vital Signs - 8 hr 12/30/17 13:44 12/30/17 16:52 Temperature 98.4 F Pulse Rate 89 98 H Respiratory Rate 14 20 Blood Pressure 149/97 H 131/87 Pulse Oximetry 100 98 <Wendy Arthur DO - Last Filed: 12/31/17 07:22> Orders Ordered: ED Orders 12/30/17 14:07 CT head/brain wo con Stat Complete Blood Count AUTO DIFF Stat Comprehensive Metabolic Panel Stat 12/30/17 14:21 Urine Drug Screen, Rapid Stat Urine Microscopic Stat 12/30/17 14:24 Thyroid Stimulating Hormone Stat Vital Signs - 8 hr 12/30/17 13:44 12/30/17 16:52 Temperature 98.4 F Pulse Rate 89 98 H Respiratory Rate 14 20 Blood Pressure 149/97 H 131/87 Pulse Oximetry 100 98 MDM - Neuro Symptoms/Deficit < KWAME EliasP - Last Filed: 12/30/17 17:20> Differential Diagnosis Likely delirium, subarachnoid hemorrhage, cerebrovascular accident, transient cerebral ischemia and other (substance abuse, psychosomatic, anxiety, electrolyte issue) Lab Data Result diagrams: 12/30/17 14:07 12/30/17 14:07 Lab Results 12/30/17 12/30/17 12/30/17 Range/Units 14:07 14:07 14:21 WBC 11.6 H (4.5-11.0) X10^3/uL RBC 4.93 (4.0-5.2) X10^6/uL Hgb 14.4 (12.0-16.0) g/dL Hct 42.6 (36-46) % MCV 86.4 (80-100) fL MCH 29.3 (26-34) PG MCHC 33.9 (30-36) % RDW 13.0 (11.6-14.8) % Plt Count 299 (150-400) X10^3/uL Neut % (Auto) 71.2 (50-75) % Lymph % (Auto) 18.5 L (25-40) % [place] % (Auto) 7.1 (3-14) % Eos % (Auto) 2.4 (2-4) % Baso % (Auto) 0.8 (0-2) % Neut # (Auto) 8300 H (0755-1362) /uL Sodium 141 (137-145) mmol/L Potassium 4.1 (3.4-5.1) mmol/L Chloride 106 (98-107) mmol/L Carbon Dioxide 23 (22-32) mmol/L BUN 8 (7-17) mg/dL Creatinine 0.70 (0.52-1.04) mg/dL Estimated GFR > 60.0 (>60) mL/min BUN/Creatinine Ratio 11.4 (6-22) Glucose 88 (70-100) mg/dL Calcium 9.1 (8.4-10.2) mg/dL Total Bilirubin 0.3 (0.2-1.3) mg/dL AST 21 (14-36) IU/L ALT 45 (9-52) IU/L Alkaline Phosphatase 87 (38-126) U/L Total Protein 7.1 (6.3-8.2) g/dL Albumin 4.3 (3.5-5.0) g/dL Globulin 2.8 (1.7-4.1) g/dL Albumin/Globulin Ratio 1.5 (1.0-2.8) TSH (0.47-4.68) uIU/mL Urine RBC (0-5/HPF) Urine WBC (0-5/HPF) Ur Squamous Epith Cells Urine Bacteria (None) Ur Culture Indicated? Micro UA Comment Urine Opiates Screen Negative (Negative) Ur Oxycodone Screen Negative (Negative) Urine Methadone Screen Negative (Negative) Ur Barbiturates Screen Negative (Negative) U Tricyclic Antidepress Negative (Negative) Ur Phencyclidine Scrn Negative (Negative) Ur Amphetamines Screen Negative (Negative) U Methamphetamines Scrn Negative (Negative) Ur MDMA Scrn (Ecstasy) Negative (Negative) U Benzodiazepines Scrn Negative (Negative) Urine Cocaine Screen Negative (Negative) U Marijuana (THC) Screen Negative (Negative) 12/30/17 12/30/17 Range/Units 14:21 14:24 WBC (4.5-11.0) X10^3/uL RBC (4.0-5.2) X10^6/uL Hgb (12.0-16.0) g/dL Hct (36-46) % MCV (80-100) fL MCH (26-34) PG MCHC (30-36) % RDW (11.6-14.8) % Plt Count (150-400) X10^3/uL Neut % (Auto) (50-75) % Lymph % (Auto) (25-40) % [place] % (Auto) (3-14) % Eos % (Auto) (2-4) % Baso % (Auto) (0-2) % Neut # (Auto) (3399-2452) /uL Sodium (137-145) mmol/L Potassium (3.4-5.1) mmol/L Chloride (98-107) mmol/L Carbon Dioxide (22-32) mmol/L BUN (7-17) mg/dL Creatinine (0.52-1.04) mg/dL Estimated GFR (>60) mL/min BUN/Creatinine Ratio (6-22) Glucose (70-100) mg/dL Calcium (8.4-10.2) mg/dL Total Bilirubin (0.2-1.3) mg/dL AST (14-36) IU/L ALT (9-52) IU/L Alkaline Phosphatase (38-126) U/L Total Protein (6.3-8.2) g/dL Albumin (3.5-5.0) g/dL Globulin (1.7-4.1) g/dL Albumin/Globulin Ratio (1.0-2.8) TSH 1.62 (0.47-4.68) uIU/mL Urine RBC None seen (0-5/HPF) Urine WBC 0-1/hpf (0-5/HPF) Ur Squamous Epith Cells 0-1 /hpf Urine Bacteria None seen (None) Ur Culture Indicated? Cult not indicated Micro UA Comment Not Reportable Urine Opiates Screen (Negative) Ur Oxycodone Screen (Negative) Urine Methadone Screen (Negative) Ur Barbiturates Screen (Negative) U Tricyclic Antidepress (Negative) Ur Phencyclidine Scrn (Negative) Ur Amphetamines Screen (Negative) U Methamphetamines Scrn (Negative) Ur MDMA Scrn (Ecstasy) (Negative) U Benzodiazepines Scrn (Negative) Urine Cocaine Screen (Negative) U Marijuana (THC) Screen (Negative) Urine Dip Bedside Urine Glucose Negative Bedside Urine Bilirubin - Negative Bedside Urine Ketone - Negative Urine Specific [place] 1.015 Bedside Urine Occult Blood - Negative Bedside Urine pH 6.0 Bedside Urine Protein - Negative Bedside Urine Urobilinogen - Negative Bedside Urine Nitrite - Negative Bedside Urine Leukocytes - Negative Esterase Imaging Data CT scan - head: Radiologist's impression: [address] [address] [address] Scan Report Signed Patient: Tammy Goode LMR#: [id number] : 1985Acct:[id number] Age/Sex: 32 / FDate of Service: 12/30/17 Loc: ED Accession Number: [id number] Procedure: CT head/brain wo con Ordering Provider: Heather Elias PROCEDURE: CT HEAD/BRAIN WO CON INDICATIONS: pt states she is having trouble reading, talking and process TECHNIQUE: Noncontrast 4.5 mm thick angled axial sections acquired from the foramen magnum to the vertex, with coronal and sagittal reformats. For radiation dose reduction, the following was used: automated exposure control, adjustment of mA and/or kV according to patient size. COMPARISON: [facility], CT, BRAIN W/O CONTRAST, 09/05/2013, 23:41. FINDINGS: Image quality: Diagnostic. CSF spaces: Basal cisterns are patent. No extra-axial fluid collections. Ventricles are normal in size and shape. Brain: No midline shift. No intracranial masses or hemorrhage. Judge-white matter interface is normal. Skull and face: Calvarium and visualized facial bones are intact, without suspicious lesions. Sinuses: Visualized sinuses and mastoids are clear. IMPRESSION: Unremarkable head CT. No acute intracranial hemorrhage. Dictated by: Dmitry Rivas M.D. on 12/30/2017 at 13:58 Approved by: Dmitry Rivas M.D. on 12/30/2017 at 13:59 <Wendy Arthur, - Last Filed: 12/31/17 07:22> Lab Data Lab Results 12/30/17 12/30/17 12/30/17 Range/Units 14:07 14:07 14:21 WBC 11.6 H (4.5-11.0) X10^3/uL RBC 4.93 (4.0-5.2) X10^6/uL Hgb 14.4 (12.0-16.0) g/dL Hct 42.6 (36-46) % MCV 86.4 (80-100) fL MCH 29.3 (26-34) PG MCHC 33.9 (30-36) % RDW 13.0 (11.6-14.8) % Plt Count 299 (150-400) X10^3/uL Neut % (Auto) 71.2 (50-75) % Lymph % (Auto) 18.5 L (25-40) % [place] % (Auto) 7.1 (3-14) % Eos % (Auto) 2.4 (2-4) % Baso % (Auto) 0.8 (0-2) % Neut # (Auto) 8300 H (1124-1213) /uL Sodium 141 (137-145) mmol/L Potassium 4.1 (3.4-5.1) mmol/L Chloride 106 (98-107) mmol/L Carbon Dioxide 23 (22-32) mmol/L BUN 8 (7-17) mg/dL Creatinine 0.70 (0.52-1.04) mg/dL Estimated GFR > 60.0 (>60) mL/min BUN/Creatinine Ratio 11.4 (6-22) Glucose 88 (70-100) mg/dL Calcium 9.1 (8.4-10.2) mg/dL Total Bilirubin 0.3 (0.2-1.3) mg/dL AST 21 (14-36) IU/L ALT 45 (9-52) IU/L Alkaline Phosphatase 87 (38-126) U/L Total Protein 7.1 (6.3-8.2) g/dL Albumin 4.3 (3.5-5.0) g/dL Globulin 2.8 (1.7-4.1) g/dL Albumin/Globulin Ratio 1.5 (1.0-2.8) TSH (0.47-4.68) uIU/mL Urine RBC (0-5/HPF) Urine WBC (0-5/HPF) Ur Squamous Epith Cells Urine Bacteria (None) Ur Culture Indicated? Micro UA Comment Urine Opiates Screen Negative (Negative) Ur Oxycodone Screen Negative (Negative) Urine Methadone Screen Negative (Negative) Ur Barbiturates Screen Negative (Negative) U Tricyclic Antidepress Negative (Negative) Ur Phencyclidine Scrn Negative (Negative) Ur Amphetamines Screen Negative (Negative) U Methamphetamines Scrn Negative (Negative) Ur MDMA Scrn (Ecstasy) Negative (Negative) U Benzodiazepines Scrn Negative (Negative) Urine Cocaine Screen Negative (Negative) U Marijuana (THC) Screen Negative (Negative) 12/30/17 12/30/17 Range/Units 14:21 14:24 WBC (4.5-11.0) X10^3/uL RBC (4.0-5.2) X10^6/uL Hgb (12.0-16.0) g/dL Hct (36-46) % MCV (80-100) fL MCH (26-34) PG MCHC (30-36) % RDW (11.6-14.8) % Plt Count (150-400) X10^3/uL Neut % (Auto) (50-75) % Lymph % (Auto) (25-40) % [place] % (Auto) (3-14) % Eos % (Auto) (2-4) % Baso % (Auto) (0-2) % Neut # (Auto) (7046-6817) /uL Sodium (137-145) mmol/L Potassium (3.4-5.1) mmol/L Chloride (98-107) mmol/L Carbon Dioxide (22-32) mmol/L BUN (7-17) mg/dL Creatinine (0.52-1.04) mg/dL Estimated GFR (>60) mL/min BUN/Creatinine Ratio (6-22) Glucose (70-100) mg/dL Calcium (8.4-10.2) mg/dL Total Bilirubin (0.2-1.3) mg/dL AST (14-36) IU/L ALT (9-52) IU/L Alkaline Phosphatase (38-126) U/L Total Protein (6.3-8.2) g/dL Albumin (3.5-5.0) g/dL Globulin (1.7-4.1) g/dL Albumin/Globulin Ratio (1.0-2.8) TSH 1.62 (0.47-4.68) uIU/mL Urine RBC None seen (0-5/HPF) Urine WBC 0-1/hpf (0-5/HPF) Ur Squamous Epith Cells 0-1 /hpf Urine Bacteria None seen (None) Ur Culture Indicated? Cult not indicated Micro UA Comment Not Reportable Urine Opiates Screen (Negative) Ur Oxycodone Screen (Negative) Urine Methadone Screen (Negative) Ur Barbiturates Screen (Negative) U Tricyclic Antidepress (Negative) Ur Phencyclidine Scrn (Negative) Ur Amphetamines Screen (Negative) U Methamphetamines Scrn (Negative) Ur MDMA Scrn (Ecstasy) (Negative) U Benzodiazepines Scrn (Negative) Urine Cocaine Screen (Negative) U Marijuana (THC) Screen (Negative) Urine Dip Bedside Urine Glucose Negative Bedside Urine Bilirubin - Negative Bedside Urine Ketone - Negative Urine Specific [place] 1.015 Bedside Urine Occult Blood - Negative Bedside Urine pH 6.0 Bedside Urine Protein - Negative Bedside Urine Urobilinogen - Negative Bedside Urine Nitrite - Negative Bedside Urine Leukocytes - Negative Esterase Discharge Plan Departure Patient Disposition: Home Clinical Impression: No problem, feared complaint unfounded, Anxiety Discharge Date/Time: 12/30/17 16:53 Interventions: ED Discharge Assessment Last Done: 12/30/17 16:52 Instructions: DI for Anxiety -- Adult Prescriptions: No Action cholecalciferol (vitamin D3) [Vitamin D3] 1,000 unit Capsule 1,000 unit PO DAILY RF: 0 aripiprazole [Abilify] 10 mg Tablet 10 mg PO DAILY RF: 0 cetirizine [Zyrtec] 10 mg Capsule 10 mg PO DAILY RF: 0 Referrals: Clone,AFM APC, PA-C, TELEPHONE INFORMATION SUPERVISOR [[facility]] - Meg Koch MD [Non-Staff] - Taye Bates DO [Non-Staff] - Jalen Cobos MD [Non-Staff] - Ru Mendoza MD [Non-Staff] - Gini Felix MD [Non-Staff] - (follow up as needed for continued symptoms or issues) <Wendy Arthur DO - Last Filed: 12/31/17 07:22> Cosign ED Attending Cosanjaliature Attestation: I was immediately available in the department for consultation. Documentation has been reviewed. I agree with assessment and plan.
[2017-12-30 14:26] LABS: Bacteria Urine None Seen; RBC Urine None Seen (0-5/HPF)
[2017-12-30 14:37] LABS: Urine Amphetamines Negative (Negative); Urine Barbiturates Negative (Negative); Urine Benzodiazepines Negative (Negative); Urine Cocaine Negative (Negative); Urine MDMA Negative (Negative); Urine Methadone Negative (Negative); Urine Methamphetamines Negative (Negative); Urine Morphine/Opi cutoff 2000 Negative (Negative); Urine Oxycodone Negative (Negative); Urine Phencyclidine Negative (Negative); Urine Tetrahydrocannabinol Negative (Negative); Urine Tricyclic Antidepressant Negative (Negative)
[2017-12-30 14:39] LABS: Culture Indicated Urine Cult Not Indicated; Squamous Epithelial Cell Urine 0-1 /HPF; WBC Urine 0-1/HPF (0-5/HPF)
--- NOTE | 2017-12-30 14:43 | PC.NURSE ---
two unsuccessful IV attempts on pt left upper arm, unsuccessful. Gauze applied. Skin warm, dry, catheter intact. Pt tolerated procedure.
[2017-12-30 15:22] LABS: Add Manual Diff / Slide Review NO; Basophils Percent Auto 0.8 % (0-2); Eosinophils Percent Auto 2.4 % (2-4); Hematocrit 42.6 % (36-46); Hemoglobin 14.4 g/dL (12.0-16.0); Lymphocytes Percent Auto 18.5 % (25-40); Mean Corpuscular HGB Conc 33.9 % (30-36); Mean Corpuscular Hemoglobin 29.3 PG (26-34); Mean Corpuscular Volume 86.4 fL (80-100); Monocytes Percent Auto 7.1 % (3-14); Neutrophils Absolute Auto 8300 /uL (3000-5900); Neutrophils Percent Auto 71.2 % (50-75); Platelet Count 299 X10^3/uL (150-400); Red Blood Cell Count 4.93 X10^6/uL (4.0-5.2); White Blood Cell Count 11.6 X10^3/uL (4.5-11.0)
[2017-12-30 16:07] LABS: Alanine Aminotransferase 45 IU/L (9-52); Albumin 4.3 g/dL (3.5-5.0); Albumin Globulin Ratio 1.5 (1.0-2.8); Alkaline Phosphatase 87 U/L (38-126); Aspartate Aminotransferase 21 IU/L (14-36); BUN Creatinine Ratio 11.4 (6-22); Bilirubin Total 0.3 mg/dL (0.2-1.3); Blood Urea Nitrogen 8 mg/dL (7-17); Calcium 9.1 mg/dL (8.4-10.2); Carbon Dioxide 23 mmol/L (22-32); Chloride 106 mmol/L (98-107); Estimated Glomerular Filt Rate > 60.0 mL/min (>60); Globulin 2.8 g/dL (1.7-4.1); Glucose 88 mg/dL (70-100); HEMOLYSIS < 15 (0-50); Potassium 4.1 mmol/L (3.4-5.1); Sodium 141 mmol/L (137-145); Total Protein 7.1 g/dL (6.3-8.2)
--- NOTE | 2017-12-30 16:44 | PC.NURSE ---
late entry- unsuccessful IV attempt at 1310 in right hand.
[2017-12-30 16:52] VITALS: BP 131/87; PULSE 98; RESP 20; O2SAT 98
[2017-12-30 17:14] LABS: Thyroid Stimulating Hormone 1.62 uIU/mL (0.47-4.68)
== END 2017-12-30 16:53 | disposition home or self-care (01) ==
PROVIDERS: Emergency Provider Nurse Practitioner
DX: F41.9 Anxiety disorder, unspecified (principal); R42 Dizziness and giddiness
CPT/HCPCS: 36415; 70450; 80053; 80305; 81003; 81015; 84443; 85025; 99282; 99284; 99291

== ENCOUNTER 2018-10-29 12:34 | Emergency (ER) | payer BC, SELFPAY ==
[2018-10-29 12:44] VITALS: BP 145/99; PULSE 106; RESP 18; TEMP 36.9; O2SAT 98; BMI 27.3
--- NOTE | 2018-10-29 19:06 | ED_ITS ---
HPI - General Adult General Chief complaint: Urogenital-Female Stated complaint: inguinal hernia Related Data Home Medications Medication Instructions Recorded Confirmed cetirizine [Zyrtec] 10 mg PO DAILY 07/02/17 02/12/18 cholecalciferol (vitamin D3) 1,000 unit PO DAILY 07/02/17 02/12/18 [Vitamin D3] albuterol sulfate 0.63 mg/3 mL 0.63 mg INHALATION Q4-6H PRN 02/12/18 02/12/18 solution for nebulization cholecalciferol (vitamin D3) 5,000 5,000 unit PO DAILY 02/12/18 02/12/18 unit capsule lorazepam 1 mg tablet 1 mg PO BEDTIME PRN 02/12/18 02/12/18 Allergies Allergy/AdvReac Type Severity Reaction Status Date / Time metoclopramide Allergy Intermediate MUSCLE Verified 02/12/18 17:11 [METOCLOPRAMIDE] SPASMS venlafaxine [VENLAFAXINE] Allergy Unknown ANXIETY Verified 02/12/18 17:11 PFSH Social History Smoking Status: Former smoker Exam Initial Vital Signs Initial Vital Signs: Vital Signs Temperature 98.5 F 10/29/18 12:44 Pulse Rate 106 H 10/29/18 12:44 Respiratory Rate 18 10/29/18 12:44 Blood Pressure 145/99 H 10/29/18 12:44 Pulse Oximetry 98 10/29/18 12:44 Course Vital Signs Vital signs: Vital Signs - 8 hr 10/29/18 12:44 Temperature 98.5 F Pulse Rate 106 H Respiratory Rate 18 Blood Pressure 145/99 H Pulse Oximetry 98 Medical Decision Making Lab Data Lab results reviewed: Yes I reviewed the patient's lab results. Labs: Point of Care Testing Test Results Negative Urine Dip Bedside Urine Glucose Negative Bedside Urine Bilirubin - Negative Bedside Urine Ketone - Negative Urine Specific [place] 1.010 Bedside Urine Occult Blood - Negative Bedside Urine pH 7.0 Bedside Urine Protein - Negative Bedside Urine Urobilinogen - Negative Bedside Urine Nitrite - Negative Bedside Urine Leukocytes - Negative Esterase Point of care testing: Point of Care Testing Test Results Negative Urine Dip Bedside Urine Glucose Negative Bedside Urine Bilirubin - Negative Bedside Urine Ketone - Negative Urine Specific [place] 1.010 Bedside Urine Occult Blood - Negative Bedside Urine pH 7.0 Bedside Urine Protein - Negative Bedside Urine Urobilinogen - Negative Bedside Urine Nitrite - Negative Bedside Urine Leukocytes - Negative Esterase Discharge Plan Departure Patient Disposition: Left Without Being Seen Clinical Impression: Patient left before evaluation by physician Discharge Date/Time: 10/29/18 14:53
== END 2018-10-29 14:53 | disposition left against medical advice (07) ==
PROVIDERS: Emergency Provider Emergency Medicine; PCP Nurse Practitioner Family
DX: K40.90 Unilateral inguinal hernia, without obstruction or gangrene, not specified as recurrent (principal)
CPT/HCPCS: 81003; 81025; 99282

== ENCOUNTER 2018-12-08 08:13 | Day surgery (SDC) | payer BC, SELFPAY ==
[2018-12-06 07:51] VITALS: BMI 28.0
[2018-12-08] VITALS (7 sets, daily range): BP systolic 113–138; BP diastolic 68–90; PULSE 87–130; RESP 12–22; TEMP 36.6–37.6; O2SAT 91–100; BMI 27.6
[2018-12-08] MEDS: LACTATED RINGERS 1,000 ML 100 ML IV (08:59)
--- NOTE | 2018-12-08 10:04 | PM.PREOP ---
Pre-operative Note Interval Note History & Physical reviewed/Exam performed by Physician: Yes Changes to H&P: No H&P completed within 30 days and has changed as indicated here:: Risks and benefits of open inguinal hernia repair with mesh were again discussed. Specifically risks of bleeding, infection, damage to nearby structures, hernia recurrence, mesh infection, need for additional procedures were discussed. The patient desires to proceed with surgery.
[2018-12-08] MEDS: CEFAZOLIN 2 GM/100 ML FROZ.PIGGY IV (10:22)
--- NOTE | 2018-12-08 10:39 | SUR.OPER ---
Supine on padded OR bed, head on pillow, arms secured on padded arm boards at <90 degrees abduction, legs uncrossed, safety belt at thigh, tape over blanket over lower legs.
[2018-12-08] MEDS: BUPIVACAINE 0.25% W/ EPI 30 ML VIAL 60 ML INJ (10:48)
[2018-12-08] MEDS: MEPERIDINE 50 MG/ML INJ 25 MG IV ×2 (11:55→12:00)
--- NOTE | 2018-12-08 12:05 | PM.OP.1 ---
Operative Date/Time/Diagnoses Date of procedure: 12/08/18 Time of procedure: 12:06 Pre-op diagnosis: right inguinal hernia Post-op diagnosis: other (Indirect inguinal hernia with incarcerated fat) Procedure & Clinicians Procedure: Open repair of right inguinal hernia with incarcerated fat Same procedure as scheduled: Yes Indications: This is a 33-year-old woman with history of multiple abdominal operations. She has been experiencing pain in the right groin for several months. It has been getting worse. She had an ultrasound which showed a right inguinal hernia. Risks and benefits of hernia repair were discussed with the patient including risk of bleeding, infection, damage to nearby structures, hernia recurrence, chronic pain, need for additional procedures. She desires to proceed with surgery. Surgeon: Keena Alvarado Click Yes if Unassisted: Yes Anesthesia Type: General (with LMA) Operative Notes Findings: Dense scar tissue outside of external oblique aponeurosis c/w prior c section; Indirect right inguinal hernia with incarcerated fat Prosthetic devices, grafts, tissues, transplants, or devices: Ultra pro mesh Estimated Blood Loss (mL): 5 Procedure in detail: The patient was brought to the operating room and placed supine on the operating table. Sequential compression devices were placed on both legs and turned on. Appropriate perioperative antibiotics were given. General anesthesia was induced the patient was intubated with an LMA by the anesthesiologist. The lower abdomen and groin were prepped and draped in sterile fashion. Surgical time-out was conducted. Local anesthetic was injected in the area of planned skin incision. A 10 cm oblique incision was made in the right groin about 2 fingerbreadths superior to the inguinal ligament, in the anesthetized skin using a 15 blade. Dissection was carried down to the level of the external oblique aponeurosis using electrocautery. There was heavy dense scarring from the patient's prior C section procedures. Once I reached the aponeurosis of the external oblique I injection more local anesthetic under the aponeurosis. I then used a fresh blade to incise the aponeurosis in the direction of its fibers in the lateral portion of the wound. I then lengthened the incision using Metzenbaum scissors all the way to the external inguinal ring, and opened the ring. Heavy scar tissue was encountered and a hernia sac with incarcerated fat was found scarred in to the floor of the inguinal canal. With careful dissection the hernia sac was dissected free. The sac was ligated at its neck using a 3 0 Vicryl suture ligature. I then divided the hernia sac and passed it off the field for pathology. The ligated stump of the sac was reduced through the internal inguinal ring into the abdomen. The floor of the inguinal canal was intact and no direct hernia defect was seen. No femoral defect was seen. At this point I minimized the defect in the internal ring by closing it with 2 0 PDS suture. The ilioinguinal nerve and iliohypogastric nerve were seen running in the usual course within the inguinal canal. There did not appear scarred, injury, or damaged. So they were left in place. A large macro porous Ultrapro mesh was brought into the field. It was shaped to fit in the inguinal canal. The medial portion of the mesh was secured to the ligaments overlying the pubic tubercle using 2 PDS. The lower border of the mesh was then secured to the Poupart's ligament using 2 PDS. The superior border the mesh was then secured to the conjoint tendon using 2 PDS sutures. All the sutures were placed in interrupted fashion. Additional local anesthetic was injected throughout the inguinal canal superior to the Poupart's ligament. The aponeurosis of the external oblique was then closed with a running 3 0 Vicryl suture. Colby's fascia was then closed with a running 3 0 Vicryl suture. The skin was then closed with running 4 Monocryl suture in a subcuticular fashion. The skin edges were then sealed with Dermabond. At the conclusion the procedure the patient was awakened from anesthesia and extubated. Needle sponge and instrument counts were correct x2 at the end of the case. The patient was transferred to the postanesthesia care unit in stable condition. Complications: none Post-operative Condition: stable Disposition: PACU
--- NOTE | 2018-12-08 12:52 | SUR.PHASEII ---
1225 C/O of need to void upon transfer from PACU. Denies pain/nausea; Impatient and anxious to void and leave; eat food. Plans to eat a large sandwich, disregarding recommendations for stool softener (plans to use mirilax); multiple attempts to get me not to review the post-op instructions with her. Unhappy that Rx wasn't sent in for her pain med. 1335 Voided qs, incision CDI, no questions. Skin warm and dry, resp unlabored, moves easily.
== END 2018-12-08 12:37 | disposition home or self-care (01) ==
PROVIDERS: PCP Nurse Practitioner Family; Visit Provider Surgery
PROC: (CPT 49507; principal; 2018-12-08 09:45)
DX: K40.30 Unilateral inguinal hernia, with obstruction, without gangrene, not specified as recurrent (principal)
CPT/HCPCS: 49507; C1781; J0690; J1100; J1885; J2175; J2250; J2405; J2704; J3010